=== PATIENT | female | born 1940 | race Caucasian/White ===

== ENCOUNTER 2023-01-07 13:14 | Outpatient (AMB) | payer OTHER, SELFPAY ==
--- NOTE | 2023-01-07 13:33 | A.OFFVIS_ITS ---
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 Pt states she is starting to have trouble remembering things. Pt states she is starting to lose things like her TV remote. Allergies No Known Allergies Allergy (Verified 01/07/23 13:36) Medication List - Last Reconciled 01/07/23 by Keena Adams MD amlodipine 5 mg PO DAILY ascorbic acid (vitamin C) (Vitamin C) 500 mg PO DAILY aspirin 81 mg PO DAILY cholecalciferol (vitamin D3) 50 mcg PO DAILY coenzyme Q10 mg PO cyanocobalamin (vitamin B-12) mcg PO fexofenadine 180 mg PO DAILY gabapentin 100 mg PO DAILY hydroxyzine HCl 25 mg PO BID lansoprazole 30 mg PO BID lisinopril 20 mg PO DAILY minoxidil mg PO DAILY oxybutynin chloride ER 10 mg PO DAILY polyethylene glycol 3350 17 grams PO DAILY pravastatin 40 mg PO DAILY HPI HPI Comments History of Present Illness Details 82y/o Khmer speaking female comes for evaluation of short term memory issues which started about 2-3 years.She lives alone. she forgets if she took her medications, gets distracted easily, frequently misplaces things in her house, forgets conversations, forgets appointments etc. she is still able to do all ADLs. she stopped driving in 1998 when she moved to [facility]. she has depression and anxiety- not well controlled. she had a minor head injury after a fall in the house. she did not need hospitalization. she has trouble falling asleep- takes few hrs. she has trouble relaxing.she denies snoring she takes naps occaisonally [facility] Medical History (Updated 01/07/23 @ 14:20 by Keena Adams MD) Depression Insomnia Mild cognitive impairment Cervicalgia Cognitive impairment Surgical History (Updated 01/07/23 @ 13:39 by Billie Taylor MA) Hx of section Family History (Updated 01/07/23 @ 13:39 by Billie Taylor MA) Mother Stomach cancer (Updated 01/07/23 @ 13:39 by Billie Taylor MA) Household Members: None Housing: Apartment Alcohol intake: never Patient Tobacco Use Status: Never used Tobacco Physical Exam Vital Signs: Last Vital Signs Pulse 90 01/07/23 13:34 BP 148/92 H 01/07/23 13:34 Pulse Ox 94 01/07/23 13:34 Oxygen Delivery Method Room Air 01/07/23 13:34 BMI result Body Mass Index 22.3 Const Orientation/consciousness: patient oriented x3 Eyes Pupils: Equal, round and reactive pupils present Neuro General: patient oriented x3, gait normal, tone normal, moves all extremities and no focal motor deficits Cranial nerves: Yes Facial sensation intact/muscles of mastication intact, Yes Equal, round and reactive pupils present, Yes Bilaterally intact EOM present, Yes Nystagmus not present, Yes Normal facial strength present, Yes Midline tongue present and Yes Symmetric palate elevation present Cognition (Neuro): normal cognition Gait exam (Neuro): Normal gait present Motor exam (neuro): 5/5 motor strength present throughout and Normal motor muscle tone present throughout Deep tendon reflexes (DTR's): Right triceps reflex intensity grade: 2+, Left triceps reflex intensity grade: 2+, Rt Biceps (C5, C6): 2+, Left biceps reflex intensity grade: 2+, Right brachioradialis reflex intensity grade: 2+, Left brachioradialis reflex intensity grade: 2+, Right patellar reflex intensity grade: 3+ and Left patellar reflex intensity grade: 3+ Coordination: [id number] test normal Psych Affect: Depressed mood present Orientation What is the (year) (season) (date) (day) (month)?: year, season, date, day and month Where are we (state) (county) (town or city) (hospital) (floor)?: state, county, town or city, hospital/clinic and floor Registration Name of 3 unrelated objects clearly and slowly, then ask patient to repeat all 3 of them. (1st repeat determines score. Make sure they can repeat all three): object 1, object 2 and object 3 Attention & Calculation (CHOOSE ONE) Spell WORLD backwards (DLROW): 5 letters Recall Ask patient to repeat the 3 items from question #3.: object 1 and object 3 Language Show patient a wristwatch & ask what it is. Repeat for pencil.: watch and pencil Ask the patient to repeat the phrase 'No ifs, ands, or buts' after you.: correct Ask the patient to 'take a piece of paper with their right hand' 'fold paper in half' 'place paper on floor': take paper in right hand and fold paper in half Print the sentence 'CLOSE YOUR EYES' on a piece. If patient actually closes eyes then score.: followed written direction Give patient a blank piece of paper & ask to write a sentence. Score if it contains a noun & verb.: sentence contains subject and verb Ask patient to copy figure of intersecting pentagons exactly. Score if all 10 angles & 2 intersects are included.: all 10 angles present & 2 are intersected Score Score: 28 Assessment & Plan Assessment & Plan (1) Mild cognitive impairment: Comment: likely mood related and poor sleep Code(s): G31.84 - Mild cognitive impairment of uncertain or unknown etiology (2) Cervicalgia: Code(s): M54.2 - Cervicalgia (3) Insomnia: Code(s): G47.00 - Insomnia, unspecified (4) Depression: Code(s): F32.A - Depression, unspecified Plan I will evaluate her with MRI brain, C spine X ray , labs . I will trial her on remeron 7.5 mg qhs to help with sleep and mood F/U in 3 months Orders: Orders TSH reflex Free T4 Today R41.89 - Other symptoms and signs involving cognitive functions and awareness Vitamin B12 and Folate Today R41.89 - Other symptoms and signs involving cognitive functions and awareness Vitamin D 25-OH (D2 and D3) Today R41.89 - Other symptoms and signs involving cognitive functions and awareness Erythrocyte Sedimentation Rate Today R41.89 - Other symptoms and signs involving cognitive functions and awareness Comprehensive Met. Panel Today R41.89 - Other symptoms and signs involving cognitive functions and awareness MR brain wo con w neuroquant Today R41.89 - Other symptoms and signs involving cognitive functions and awareness XR cervical spine 3V Today M54.2 - Cervicalgia Complete Blood Count Auto Diff Today R41.89 - Other symptoms and signs involving cognitive functions and awareness Medications: New mirtazapine 7.5 mg PO BEDTIME 30 tabs 6RF Coding Level of Care Code New Pt Level 4 (85220) Diagnoses Mild cognitive impairment G31.84 Cervicalgia M54.2 Insomnia G47.00 Depression F32.A
[2023-01-07 13:34] VITALS: BP 148/92; PULSE 90; O2SAT 94; BMI 22.3
== END 2023-01-07 14:15 | disposition home or self-care (01) ==
PROVIDERS: PCP Family Medicine; Visit Provider Psychiatry & Neurology Neurology
DX: G31.84 Mild cognitive impairment of uncertain or unknown etiology (principal); M54.2 Cervicalgia; G47.00 Insomnia, unspecified; F32.A Depression, unspecified
CPT/HCPCS: 99204

== ENCOUNTER → 2023-01-07 13:14 | Outpatient (BNVA) | payer OTHER, SELFPAY | PROVIDERS: PCP Family Medicine; Visit Provider Psychiatry & Neurology Neurology | DX: G31.84 Mild cognitive impairment of uncertain or unknown etiology (principal); G47.00 Insomnia, unspecified; M54.2 Cervicalgia; F32.A Depression, unspecified | CPT/HCPCS: 99202 ==

== ENCOUNTER 2023-10-24 13:12 | Outpatient (AMB) | payer OTHER, SELFPAY ==
--- NOTE | 2023-10-24 13:21 | MHC.OFFVIS ---
Vital Signs 10/24/23 13:22 Height 4 ft 9 in Weight 103 lb 8 oz BMI 22.4 BP 138/64 Blood Pressure Location Rt brachial Position Sitting Respiration 16 Pulse 91 Pulse Source Pulse Oximeter Pulse Oximetry (%) 96 Oxygen Delivery Method Room Air Intake Visit Reasons: Follow up Intake Note: Pt presents to the office for a 10 month follow up for memory impairment. Labor Relations Officer Required: Yes Labor Relations Officer Services: Labor Relations Officer Present Labor Relations Officer Name: Candis RGUERDA Allergies No Known Allergies Allergy (Verified 10/24/23 13:22) Medication List - Last Reconciled 10/24/23 by Keena Adams MD amlodipine 5 mg PO DAILY ascorbic acid (vitamin C) (Vitamin C) 500 mg PO DAILY aspirin 81 mg PO DAILY cholecalciferol (vitamin D3) 50 mcg PO DAILY coenzyme Q10 mg PO cyanocobalamin (vitamin B-12) mcg PO fexofenadine 180 mg PO DAILY gabapentin 100 mg PO DAILY hydroxyzine HCl 25 mg PO BID lansoprazole 30 mg PO BID lisinopril 20 mg PO DAILY minoxidil mg PO DAILY mirtazapine 7.5 mg PO BEDTIME oxybutynin chloride ER 10 mg PO DAILY polyethylene glycol 3350 17 grams PO DAILY pravastatin 40 mg PO DAILY HPI Comments Details: 83y/o Lao speaking female comes for follow up of short term memory issues which started about 2-3 years. she was started on mirtazepine 7.5mg qhs - sleeping better.she reports daytime fatigue She lives alone. she forgets if she took her medications, gets distracted easily, frequently misplaces things in her house, forgets conversations, forgets appointments etc. she is still able to do all ADLs. she stopped driving in 1998 when she moved to [facility]. she has depression and anxiety- mildly improved with mirtazepine she had a fall last week and went to ER. Her shoes broke and she tripped and fell. she reports mild balance issues. she takes naps occasionally PFSH Medical History Depression Insomnia Mild cognitive impairment Cervicalgia Cognitive impairment Surgical History Hx of section Family History Mother Stomach cancer Social History Household Members: None Housing: Apartment Alcohol intake: never Patient Tobacco Use Status: Never used Tobacco Physical Exam Vital Signs: Last Vital Signs Pulse 91 10/24/23 13:22 Resp 16 10/24/23 13:22 BP 138/64 10/24/23 13:22 Pulse Ox 96 10/24/23 13:22 Oxygen Delivery Method Room Air 10/24/23 13:22 BMI result Body Mass Index 22.4 Const Orientation/consciousness: patient oriented x3 Eyes Pupils: Equal, round and reactive pupils present Neuro General: patient oriented x3, gait normal, tone normal, moves all extremities and no focal motor deficits Cranial nerves: Yes Facial sensation intact/muscles of mastication intact, Yes Equal, round and reactive pupils present, Yes Bilaterally intact EOM present, Yes Nystagmus not present, Yes Normal facial strength present, Yes Midline tongue present and Yes Symmetric palate elevation present Cognition (Neuro): normal cognition Gait exam (Neuro): Normal gait present Motor exam (neuro): 5/5 motor strength present throughout and Normal motor muscle tone present throughout Deep tendon reflexes (DTR's): Right triceps reflex intensity grade: 2+, Left triceps reflex intensity grade: 2+, Rt Biceps (C5, C6): 2+, Left biceps reflex intensity grade: 2+, Right brachioradialis reflex intensity grade: 2+, Left brachioradialis reflex intensity grade: 2+, Right patellar reflex intensity grade: 3+ and Left patellar reflex intensity grade: 3+ Coordination: [id number]-ki-[id number] test normal Psych Affect: Depressed mood present Assessment & Plan Assessment & Plan (1) Mild cognitive impairment: Comment: likely mood related and poor sleep Code(s): G31.84 - Mild cognitive impairment of uncertain or unknown etiology Category: Medical (2) Cervicalgia: Code(s): M54.2 - Cervicalgia Category: Medical (3) Insomnia: Code(s): G47.00 - Insomnia, unspecified Category: Medical Plan MRI brain- age related changes C spine X ray - deg changes Continue remeron 7.5 mg qhs to help with sleep and mood will refer her to PT for gait and balance Orders: Referrals [facility] Referral G31.84 - Mild cognitive impairment of uncertain or unknown etiology, M54.2 - Cervicalgia, R29.6 - Repeated falls Medications: Refilled mirtazapine 7.5 mg PO BEDTIME 30 tabs 6RF Coding Level of Care Code Est Pt Level 4 (22191) Diagnoses Mild cognitive impairment G31.84 Cervicalgia M54.2 Insomnia G47.00
[2023-10-24 13:22] VITALS: BP 138/64; PULSE 91; RESP 16; O2SAT 96; BMI 22.4
== END 2023-10-24 13:50 | disposition home or self-care (01) ==
PROVIDERS: PCP Family Medicine; Visit Provider Psychiatry & Neurology Neurology
DX: G31.84 Mild cognitive impairment of uncertain or unknown etiology (principal); M54.2 Cervicalgia; G47.00 Insomnia, unspecified
CPT/HCPCS: 99214

== ENCOUNTER → 2023-10-24 13:12 | Outpatient (BNVA) | payer OTHER, SELFPAY | PROVIDERS: PCP Family Medicine; Visit Provider Psychiatry & Neurology Neurology | DX: G31.84 Mild cognitive impairment of uncertain or unknown etiology (principal); M54.2 Cervicalgia; G47.00 Insomnia, unspecified; R29.6 Repeated falls | CPT/HCPCS: 99212 ==

== ENCOUNTER → 2024-09-01 23:59 | Outpatient (BNV) | payer OTHER, SELFPAY | PROVIDERS: PCP Family Medicine; Visit Provider Psychiatry & Neurology Neurology | DX: G31.84 Mild cognitive impairment of uncertain or unknown etiology (principal); R29.6 Repeated falls; M54.2 Cervicalgia | CPT/HCPCS: G0179 ==

== ENCOUNTER → 2024-11-08 23:59 | Outpatient (BNV) | payer OTHER, SELFPAY | PROVIDERS: PCP Family Medicine; Visit Provider Psychiatry & Neurology Neurology | DX: G31.84 Mild cognitive impairment of uncertain or unknown etiology (principal); R29.6 Repeated falls; M54.2 Cervicalgia | CPT/HCPCS: G0179 ==

== ENCOUNTER 2024-11-30 14:31 | Outpatient (AMB) | payer OTHER, SELFPAY ==
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
[2024-11-30 14:41] VITALS: BP 150/70; PULSE 72; O2SAT 94; BMI 22.5
--- OUTSIDE RECORDS SUMMARY | 2024-11-30 17:25 | XMS_ITS | Clinical Summary ---
Author Organization [employer] Address [address] [place] [address] Care Team Providers Care Revenue Stamp Cutter Name Role Phone Unavailable Primary Care Provider Unavailabl e Allergies Active Allergy Reactions Criticality Noted Date Comments Aspirin 09/16/2012 Other reaction(s): Stomach Pain 325mg dose gives burning in chest, 81mg ok 325mg dose gives burning in chest, 81mg ok Chlorthalidone 11/08/2021 Hyponatremia Medications amLODIPine (Norvasc) 5 MG tablet Take 5 mg by mouth in the morning. 3 Active ammonium lactate (Amlactin) 12 % cream 3 Active ascorbic acid (Vitamin C) 500 mg chewable tablet CHEW 1 TABLET BY MOUTH EVERY DAY WITH MEALS FOR 90 DAYS 3 Active Aspirin Low Dose 81 MG EC tablet Take 81 mg by mouth in the morning. 3 Active cholecalciferol (Vitamin D-3) 50 MCG (2000 UT) tablet Take 50 mcg by mouth in the morning. 3 Active coenzyme Q-10 100 MG capsule Take 100 mg by mouth in the morning. 3 Active Allergy Relief 180 MG tablet Take 180 mg by mouth in the morning. 3 Active fluticasone (Flonase) 50 MCG/ACT nasal spray SHAKE LIQUID AND USE 2 SPRAYS IN EACH NOSTRIL EVERY DAY DIRECTED 3 Active gabapentin (Neurontin) 100 MG capsule TAKE 1 CAPSULE BY MOUTH EVERY DAY AT BEDTIME 3 Active hydrOXYzine HCl (Atarax) 25 MG tablet TAKE 1 TO 2 TABLETS BY MOUTH EVERY NIGHT AT BEDTIME NEEDED 3 Active lactulose (Chronulac) 10 GM/15ML solution TAKE 15 ML BY MOUTH EVERY DAY NEEDED 3 Active lansoprazole (Prevacid) [address] capsule Take 30 mg by mouth 2 times daily. 3 Active lisinopril 20 MG tablet Take 20 mg by mouth in the morning. 3 Active minoxidil (Loniten) 2.5 MG tablet Take 2.5 mg by mouth in the morning. 3 Active Multiple Vitamin (Multivitamin) tablet Take 1 tablet by mouth in the morning. 3 Active pravastatin (Pravachol) 40 MG tablet Take 40 mg by mouth at bedtime. 3 Active triamcinolone (Kenalog) 0.1 % cream APPLY THIN LAYER TOPICALLY TO THE AFFECTED AREA TWICE DAILY 3 Active Active Problems Problem Noted Date Diagnosed Date Dental calculus 07/19/2022 Open fracture of tooth 07/05/2022 Partially edentulous mandible 05/28/2022 Social History Tobacco Use Types Packs/Day Years Used Date Smoking Tobacco: Never Passive Smoke Exposure: Never Smokeless Tobacco: Never Tobacco Cessation:Counseling Given: Not Answered Alcohol Use Standard Drinks/Week Comments Never 0 (1 standard drink = 0.6 oz pur e alcohol) Comments Unknown Sex and Gender Information Value Date Recorded Sex Assigned at Female 12/17/2021 10:24 AM EDT Legal Sex Female 10:24 AM EDT Gender Identity Female 12/17/2021 10:24 AM EDT Sexual Orientation Straight 12/17/2021 10 :24 AM EDT Last Filed Vital Signs Vital Sign Reading Time Taken Comments Blood Pressure 126/78 07/19/2022 10:05 AM EDT Pulse 74 07/19/2022 10:05 AM EDT Temperature - - Respiratory Rate - - Oxygen Saturation - - Inhaled Oxygen Concentration - - Weight - - Height - - Body Mass Index - - Plan of Treatment Health Maintenance Due Date Last Done Comments Dental Oral Exam 1941 Dental X-Ray: Bitewings 1941 Dental X-Ray: Full Mouth 1941 Depression Screening 1941 Lipid Panel 1941 SDOH Screening 1941 Alcohol/Substance Use Screening 1953 RSV Patients and Patients Aged 60 years or older (1 - 1-dose 75+ series) 02/06/2016 DTaP/Tdap/Td Vaccines (1 - Tdap) 09/23/2020 09/22/2020, 11/14/2010 Dental Prophylaxis 01/19/2023 07/19/2022 Tobacco Screening 07/20/2023 07/19/2022 COVID-19 Vaccine ( season) 2024 04/06/2021, 04/22/2020, 03/25/2020 Influenza Vaccine (#1) 2024 , 12/01/2021, 11/24/2020, Additional history exists Pneumococcal Vaccine: 50+ Years Completed 11/23/2014, 10/26/2010 Zoster Vaccines Completed 02/27/2022, 12/18, 11/23/2018, Additional history exists HIB Vaccines Aged Out No longer eligi ble based on patient's age to complete this topic HPV Vaccines Aged Out No longer eligi ble based on patient's age to complete this topic Hepatitis A Vaccines Aged Out No long er eligible based on patient's age to complete this topic Hepatitis B Vaccines Aged Out No long er eligible based on patient's age to complete this topic IPV Vaccines Aged Out No longer eligi ble based on patient's age to complete this topic Meningococcal B Vaccine Aged Out No l onger eligible based on patient's age to complete this topic Meningococcal Vaccine Aged Out No missy erwin eligible based on patient's age to complete this topic RSV under 20 months Aged Out No longe r eligible based on patient's age to complete this topic Rotavirus Vaccines Aged Out No longer eligible based on patient's age to complete this topic Procedures Procedure Name Priority Date/Time Associated Diagnosis Comments PROPHYLAXIS - ADULT Routine 07/19/2022 10:00 AM E DT Dental calculus from Last 3 Months or Most Recently Relevant to Health Maintenance Insurance DENTAL - [facility] Member Subscriber Plan / Payer (Ef fective 2023-) Name:Niyah Sales Relation to Subscriber:Self Name:Niyah Sales Payer ID:Not on file Group ID:Not on file Type:Not on file Address: [address] [facility]
--- OUTSIDE RECORDS SUMMARY | 2024-11-30 17:25 | XMS_ITS | Encounter Summary ---
Author Organization [facility] Address [address] [place] [address] Phone Care Team Providers Care Analytical Scientist Name Role Phone Tapan Lovelace MD Primary Care Provider [phone] Arpita Mo NP Primary Care Provider [phone] Cristobal Alcantara DO Unavailable [phone] Keena Adams MD Unavailable [phone] Encounter Details Date Type Department Care Team (Late st Contact Info) Description 03/08/2021 Procedure Pass [facility] Admitting Dept Virtual Department [address] [place], [place] [id number] Social History Tobacco Use Types Packs/Day Years Used Date Smoking Tobacco: Never Smokeless Tobacco: Never Alcohol Use Standard Drinks/Week Comments Never 0 (1 standard drink = 0.6 oz pur e alcohol) Comments Unknown Sex and Gender Information Value Date Recorded Sex Assigned at Female 11/21/2020 9:05 PM EDT Legal Sex Female 10:11 PM EDT Gender Identity Female 11/21/2020 9:05 PM EDT Sexual Orientation Straight 11/21/2020 9: 05 PM EDT documented as of this encounter Plan of Treatment Upcoming Encounters Date Type Department Care Team (Late st Contact Info) Description 04/28/2025 2:30 PM EDT Office Visit [facility] [address] [place] [address] Cristobal Alcantara DO [address] [place] [address] [email or web address] documented as of this encounter Visit Diagnoses Not on filedocumented in this encounter Additional Health Concerns Infection Onset Date Last Indicated Resolved Time CoV-Risk 02/02/2024 02/02/2024 02/13/2024 1:22 AM EST documented as of this encounter Care Teams Analytical Scientist Relationship Specialty Start Date End Date Tapan Lovelace MD [address] [place] [address] [place] [phone] [email or web address] PCP - General 02/20/17 11/21/21 Arpita Mo NP [address] [place] [phone] PCP - General Family Medicine 11/22/21 Cristobal Alcantara DO [address] [place] [phone] [email or web address] Geriatric Medicine 11/18/23 Keena Adams MD [address] [place] [id number] Neurology 11/18/23 documented as of this encounter Additional Source Comments The information contained in this document represents components of the legal health record. It is not the complete legal health record.[facility]
--- OUTSIDE RECORDS SUMMARY | 2024-11-30 17:25 | XMS_ITS | Encounter Summary ---
Author Organization [facility] Address [address] [place] [address] Phone Care Team Providers Care Phlebotomy Manager Name Role Phone Arpita Mo BARROW WORKER HELPER Primary Care Provider [phone] Cristobal Alcantara DO Unavailable [phone] Keena Adams MD Unavailable [phone] Encounter Details Date Type Department Care Team (Late st Contact Info) Description 02/02/2024 Procedure Pass [facility], Ct Scan - [facility] [address] [place] [address] Social History Tobacco Use Types Packs/Day Years Used Date Smoking Tobacco: Never Smokeless Tobacco: Never Alcohol Use Standard Drinks/Week Comments Never 0 (1 standard drink = 0.6 oz pur e alcohol) Education Answer Date Recorded Are you interested in more education? Not on joão e 06/14/2022 Are you concerned about learning? Not on file 06/14/2022 No 06/14/2022 No 06/14/2022 Digital Access Answer Date Recorded No 07/15/2022 No 07/15/2022 Reliable internet access at home? Not on file 07/15/2022 Device with a working camera? Not on file Intimate Partner Violence Answer Date R ecorded Are you denied basic needs s uch as food, clothing, or medical care? No 02/02/2024 In the past 12 months have y ou been in a relationship with a person who hurts, threatens, or tries to control you? No 02/02/2024 Are you denied basic needs s uch as food, clothing, or medical care? No 02/02/2024 In the past 12 months have y ou been in a relationship with a person who hurts, threatens, or tries to control you? No 02/02/2024 Comments Unknown Sex and Gender Information Value Date Recorded Sex Assigned at Female 11/21/2020 9:05 PM EDT Legal Sex Female 10:11 PM EDT Gender Identity Female 11/21/2020 9:05 PM EDT Sexual Orientation Straight 11/21/2020 9: 05 PM EDT documented as of this encounter Functional Status * Calculated C-SSRS Risk Score (Lifetime/Recent) Answer Date of Assessment Author No Risk Indicated 02/02/2024 4:37 PM Donato Albert RN * [place] Suicide Severity Rating Scale (Screener/Recent Self-Report) Question Answer Date of Assessment Author 1. Wish to be (Past 1 Month) No 02/02/2024 4:37 PM Donato Albert, RN 2. Non-Specific Active Suici dejon Thoughts (Past 1 Month) No 02/02/2024 4:37 PM Shun Albert RN 6. Suicidal Behavior (Lifetime) No 4:37 PM Donato Albert, RN documented as of this encounter Plan of Treatment Upcoming Encounters Date Type Department Care Team (Late st Contact Info) Description 04/28/2025 2:30 PM EDT Office Visit [facility] [address] [place] [address] Cristobal Alcantara DO [address] [place] [address] [email or web address] documented as of this encounter Visit Diagnoses Not on filedocumented in this encounter Additional Health Concerns Infection Onset Date Last Indicated Resolved Time CoV-Risk 02/02/2024 02/02/2024 02/13/2024 1:22 AM EST Assessment Noted Time PHQ-9 Depression Total Score: 13 024 2:25 PM EDT PHQ-2 Depression Total Score: 4 11/27/19 24 2:25 PM EDT documented as of this encounter Care Teams Phlebotomy Manager Relationship Specialty Start Date End Date Chepe Arpitanamita Alfaro NP [address] [place] [address] PCP - General Family Medicine 11/22/21 Cristobal Alcantara DO [address] [place] [address] [email or web address] Geriatric Medicine 11/18/23 Keena Adams MD [address] [place] [address] Neurology 11/18/23 documented as of this encounter Additional Source Comments The information contained in this document represents components of the legal health record. It is not the complete legal health record.[facility]
--- OUTSIDE RECORDS SUMMARY | 2024-11-30 17:25 | XMS_ITS | Encounter Summary ---
Author Organization [employer] Address [address] [facility] 7t [place] [address] Care Team Providers Care Metal Cut Off Saw Operator Name Role Phone Unavailable Primary Care Provider Unavailabl e Encounter Details Date Type Department Care Team (Latest Contact Info) Description 05/12/2020 Abstract [facility] CONVERSIONS Dental, Provider, DDS Social History Tobacco Use Types Packs/Day Years Used Date Smoking Tobacco: Never Assessed Comments Unknown Sex and Gender Information Value Date Recorded Sex Assigned at Female 12/17/2021 10:24 AM EDT Legal Sex Female 10:24 AM EDT Gender Identity Female 12/17/2021 10:24 AM EDT Sexual Orientation Straight 12/17/2021 10 :24 AM EDT documented as of this encounter Plan of Treatment Not on file documented as of this encounter Visit Diagnoses Not on filedocumented in this encounter
--- OUTSIDE RECORDS SUMMARY | 2024-11-30 17:25 | XMS_ITS | Encounter Summary ---
Author Organization [facility] Address [address] [facility] [address] [place] [address] Phone Care Team Providers Care Councillor [employer] Name Role Phone Tapan Lovelace MD Primary Care Provider [phone] Arpita Mo NP Primary Care Provider [phone] Cristobal Alcantara DO Unavailable [phone] Keena Adams MD Unavailable [phone] Encounter Details Date Type Department Care Team (Late st Contact Info) Description 12/18/2018 Procedure Pass [facility] Admitting Dept Virtual Department [address] [place] [address] [phone] Social History Tobacco Use Types Packs/Day Years [...] documented as of this encounter Functional Status documented as of this encounter Plan of Treatment Upcoming Encounters Date Type Department Care Team (Late st Contact Info) Description 04/28/2025 2:30 PM EDT Office Visit [facility] [address] [place] [address] Cristobal Alcantara DO [address] [place] [address] [email or web address] documented as of this encounter Visit Diagnoses Not on filedocumented in this encounter Additional Health Concerns Infection Onset Date Last Indicated Resolved Time CoV-Risk 02/02/2024 02/02/2024 02/13/2024 1:22 AM EST documented as of this encounter Care Teams Councillor Aboriginal Land [employer] Relationship Specialty Start Date End Date Tapan Lovelace MD [address] [place] [phone] PCP - General 02/20/17 11/21/21 Arpita Mo NP [address] [place] [address] PCP - General Family Medicine 11/22/21 Cristobal Alcantara DO [address] [place] [address] [email or web address] Geriatric Medicine 11/18/23 Keena Adams MD [address] [place] [address] Neurology 11/18/23 documented as of this encounter Additional Source Comments The information contained in this document represents components of the legal health record. It is not the complete legal health record.[facility]
--- OUTSIDE RECORDS SUMMARY | 2024-11-30 17:25 | XMS_ITS | Encounter Summary ---
Author Organization [employer] Address [address] [facility] 7t [place] [address] Care Team Providers Care Genetic Supervisor Name Role Phone Unavailable Primary Care Provider Unavailabl e Reason for Visit * Reason Onset Date Comments Appointment 09/20/2022 Encounter Details Date Type Department Care Team (Late st Contact Info) Description 09/20/2022 Telephone [facility] ADULT DENTAL [address] [place], [place] [phone] Barber Sandoval DDS [address] [place], [place] [phone] Appointment Social History Tobacco Use Types Packs/Day Years Used Date Smoking Tobacco: Never Passive Smoke Exposure: Never Smokeless Tobacco: Never Alcohol Use Standard Drinks/Week Comments Never 0 (1 standard drink = 0.6 oz pur e alcohol) Comments Unknown Sex and Gender Information Value Date Recorded Sex Assigned at Female 12/17/2021 10:24 AM EDT Legal Sex Female 10:24 AM EDT Gender Identity Female 12/17/2021 10:24 AM EDT Sexual Orientation Straight 12/17/2021 10 :24 AM EDT documented as of this encounter Miscellaneous Notes * Telephone Encounter - Joan Titus - 09/20/2022 3:02 PM EDT Patient is upset because she is on the waiting list for an appt with Dr. Sandoval and states that sheneeds an appt. She states that she has been calling for months. I see the appt wait listed for 09/02. She states she has been waiting for months and wants to get in for an appt. I did explain the wait list and that she will get a call when it is her turn to come in but she is insisting on speaking to the Dr and getting and appt scheduled. She doesn't understand what the wait is. She would like a call back with an appt DR documented in this encounter Plan of Treatment Not on file documented as of this encounter Visit Diagnoses Not on filedocumented in this encounter
--- OUTSIDE RECORDS SUMMARY | 2024-11-30 17:25 | XMS_ITS | Encounter Summary ---
Author Organization [facility] Address [address] [place] [address] Phone Care Team Providers Care Application Security Engineer Name Role Phone Arpita Mo SATELLITE TV TECHNICIAN Primary Care Provider [phone] Cristobal Alcantara DO Unavailable [phone] Keena Adams MD Unavailable [phone] Encounter Details Date Type Department Care Team (Late st Contact Info) Description 02/02/2024 Procedure Pass [facility], Ct Scan - [facility] [address] [place] [address] Social History Tobacco Use Types Packs/Day Years [...] 02/02/2024 4:37 PM Donato Albert RN * [place] Suicide Severity Rating Scale (Screener/Recent Self-Report) Question [...] Description 04/28/2025 2:30 PM EDT Office Visit [facility] [address] [place] [address] Cristobal Alcantara DO [address] [place] [address] [email or web address] documented as of this encounter Visit Diagnoses Not on filedocumented in this encounter Additional Health Concerns Infection Onset Date Last Indicated Resolved Time CoV-Risk 02/02/2024 02/02/2024 02/13/2024 1:22 AM EST Assessment Noted Time PHQ-9 Depression Total Score: 13 024 2:25 PM EDT PHQ-2 Depression Total Score: 4 11/27/19 24 2:25 PM EDT documented as of this encounter Care Teams Application Security Engineer Relationship Specialty Start Date End Date Chepe Arpitanamita Alfaro NP [address] [place] [address] PCP - General Family Medicine 11/22/21 Cristobal Alcantara DO [address] [place] [address] [email or web address] Geriatric Medicine 11/18/23 Keena Adams MD [address] [place] [address] Neurology 11/18/23 documented as of this encounter Additional Source Comments The information contained in this document represents components of the legal health record. It is not the complete legal health record.[facility]
--- OUTSIDE RECORDS SUMMARY | 2024-11-30 17:25 | XMS_ITS | Encounter Summary ---
Author Organization [email or web address] Address [address] [facility] 7t [place] [address] Care Team Providers Care Claim Technician Name Role Phone Unavailable Primary Care Provider Unavailabl e Encounter Details Date Type Department Care Team (Latest Contact Info) Description 12/21/2021 Abstract [facility] CONVERSIONS Dental, Provider, DDS Social History Tobacco [...]
--- OUTSIDE RECORDS SUMMARY | 2024-11-30 17:25 | XMS_ITS | Encounter Summary ---
Author Organization [employer] Address [address] [facility] 7t [place] [address] Care Team Providers Care Associate Of Science In Nursing Name Role Phone Unavailable Primary Care Provider Unavailabl e Reason for Visit * Reason Onset Date Comments case from lab 07/08/2022 Encounter Details Date Type Department Care Team (Late st Contact Info) Description 07/08/2022 Telephone [facility] ADULT DENTAL [address] [place], [place] [phone] Barber Sandoval DDS [address] [place], [place] [phone] case from lab Social History Tobacco Use Types Packs/Day Years [...] Orientation Straight 12/17/2021 10 :24 AM EDT COVID-19 Exposure Response Date Recorded In the last 10 days, have yo u been in contact with someone who was confirmed or suspected to have Coronavirus/COVID-19? No / Unsure 07/05/2022 10:59 AM EDT documented as of this encounter Miscellaneous Notes * Telephone Encounter - Joan Titus - 07/09/2022 2:52 PM EDT Thank you. Patient is calling in again today to confirm if case is back from lab today? * Telephone Encounter - Joan Titus - 07/08/2022 1:16 PM EDT Patient was told to call in today to check if case is back from lab. DR documented in this encounter Plan of Treatment Not on file documented as of this encounter Visit Diagnoses Not on filedocumented in this encounter
--- OUTSIDE RECORDS SUMMARY | 2024-11-30 17:25 | XMS_ITS | Encounter Summary ---
Author Organization [facility] Address [address] [place] [address] Phone Care Team Providers Care Warehouse Supervisor Name Role Phone Tapan Lovelace MD Primary Care Provider Arpita Mo NP Primary Care Provider [phone] Cristobal Alcantara DO Unavailable [phone] Keena Adams MD Unavailable Encounter Details Date Type Department Care Team (Latest Contact Info) Description 10/14/2018 Transcribe Orders [facility] Laboratory [address] [facility] 2nd Floor [place], [place] [phone] Sylvia Weeks CNP [address] [place] [address] Abdominal pain, generalized (Primary Dx); Constipation, unspecified constipation type; Calculus of gallbladder with cholecystitis without biliary obstruction, unspecified cholecystitis acuity Social History Tobacco Use Types Packs/Day Years [...] Upcoming Encounters Date Type Department Care Team ( Contact Info) Description 04/28/2025 2:30 PM EDT Office Visit [facility] [address] [place] [address] Cristobal Alcantara, [address] [place] [address] [email or web address] documented as of this encounter Results * (ABNORMAL) Comprehensive metabolic panel (10/14/2018 2:01 PM EDT) SODIUM 137 133 - 146 mmol/L [facility] POTASSIUM 4.6 3.3 - 5.1 mmol/L [facility] CHLORIDE 98 96 - 108 mmol/L [facility] CO2 26 21 - 35 mmol/L [facility] BUN 16 6 - 19 mg/dL [facility] CREATININE 0.70 0.5 - 1.5 mg/dL [facility] GLUCOSE 119(H) 70 - 99 mg/dL [facility] ALBUMIN 4.7 3.9 - 4.8 g/dL [facility] TOTAL PROTEIN 7.9 6.5 - 8.0 g/dL [facility] CALCIUM 10.0 8.4 - 10.3 mg/dL [facility] ALKALINE PHOSPHATASE 51 39 - 117 U/L [facility] TOTAL BILIRUBIN 0.3 0.0 - 1.2 mg/dL [facility] AST 24 0 - 37 U/L [facility] ALT 14 0 - 40 U/L [facility] GLOBULIN 3.2 1 - 4.8 g/dL [facility] EGFR 84 >59 mL/min/1.7 3m2 [facility] Comment:If patient is black, multiply result by 1.159. Estimated glomerular filtration rate calculated using the CKD-EPI equation. ANION GAP 18 10 - 20 mmol/L [facility] Blood 10/14/2018 2:01 PM EDT 10/14/2018 2:05 PM EDT us Sylvia Weeks CHAIN REPAIRER LAB BLOOD ORDERABLES Final Result [facility] [address] [place] [address] * (ABNORMAL) CBC and differential (10/14/2018 2:01 PM EDT) WBC 8.55 3.40 - 11.20 K/uL [facility] RBC 4.20 3.80 - 4.80 M/uL [facility] HGB 13.1 12.0 - 15.0 g/dL [facility] HCT 38.4 36.0 - 46.0 % [facility] PLT 257 130 - 400 K/uL [facility] MCV 91.4 79.0 - 98.0 fL [facility] MCH 31.2 27.0 - 34.8 pg [facility] MCHC 34.1 31.5 - 36.0 g/dL [facility] RDW 13.3 10.8 - 14.6 % [facility] MPV 10.2 9.4 - 12.4 fl [facility] NRBC 0.00 0.00 /100 WBCs [facility] ABSOLUTE NRBC 0.00 0.00 K/uL [facility] DIFF METHOD Auto [facility] NEUTS 57.8 45.30 - 77.70 % [facility] LYMPHS 33.5 12.30 - 39.70 % [facility] MONOS 7.0 4.10 - 12.80 % [facility] EOS 1.1 0 - 7.2 % [facility] BASOS 0.4 0 - 2.80 % [facility] Granulocytes, immature (%) 0.2 0.0 - 0.9 % [facility] ABSOLUTE NEUTS 4.95 1.40 - 7.70 K/uL [facility] ABSOLUTE LYMPHS 2.86 0.60 - 3.20 K/uL [facility] ABSOLUTE MONOS 0.60(H) 0.11 - 0.59 K/uL [facility] ABSOLUTE EOS 0.09 0.01 - 0.50 K/uL [facility] ABSOLUTE BASOS 0.03 0.00 - 0.08 K/uL [facility] Granulocytes, immature 0.02 0.00 - 0.05 K/uL [facility] Blood 10/14/2018 2:01 PM EDT 10/14/2018 2:05 PM EDT us ySlvia Weeks [facility] LAB BLOOD ORDERABLES Final Result Performing Organization Address City/[facility]/ZIP Co de Phone Number [address] [address] * Immunoglobulin A (10/14/2018 2:01 PM EDT) Pathologist [facility] IgA 163 70 - 400 mg/dL [facility] Blood 10/14/2018 2:01 PM EDT 10/14/2018 2:05 PM EDT us Sylvia Weeks [facility] LAB BLOOD ORDERABLES Final Result Performing Organization Address [facility] Co de Phone Number [address] [address] * Tissue transglutaminase IgA (10/14/2018 2:01 PM EDT) Pathologist [facility] TTG IGA ANTIBODY <1.2 <4.0 (Negative) U/mL [facility] Blood 10/14/2018 2:01 PM EDT 10/14/2018 2:05 PM EDT Sylvia Weeks [facility] LAB BLOOD ORDERABLES Final Result Performing Organization Address City/[facility] Co de Phone Number [facility] [address] [place] [address] documented in this encounter Visit Diagnoses Diagnosis Abdominal pain, generalized- Primary Constipation, unspecified constipation type Calculus of gallbladder with cholecystitis without biliary obstruction, unspecified cholecystitis acuity documented in this encounter Additional Health Concerns Infection Onset Date Last Indicated Resolved Time CoV-Risk 02/02/2024 02/02/2024 02/13/2024 1:22 AM EST documented as of this encounter Care Teams Warehouse Supervisor Relationship Specialty Start Date End Date Tapan Lovelace MD [address] [facility] [address] [place] [address] [email or web address] PCP - General 02/20/17 11/21/21 Arpita Mo NP [address] [place] [address] PCP - General Family Medicine 11/22/21 Cristobal Alcantara DO [address] [place] [address] [email or web address] Geriatric Medicine 11/18/23 Keena Adams MD [address] [place] [address] Neurology 11/18/23 documented as of this encounter Additional Source Comments The information contained in this document represents components of the legal health record. It is not the complete legal health record.[facility]
--- OUTSIDE RECORDS SUMMARY | 2024-11-30 17:25 | XMS_ITS | Encounter Summary ---
Author Organization [facility] Address [address] [place] [address] Phone Care Team Providers Care Emulsification Operator Name Role Phone Tapan Lovelace MD Primary Care Provider [phone] Arpita Mo NP Primary Care Provider [phone] Cristobal Alcantara DO Unavailable [phone] Keena Adams MD Unavailable [phone] Encounter Details Date Type Department Care Team (Latest Contact Info) Description 10/14/2018 Transcribe Orders Virtual Department [address] [place], [place] [phone] Sylvia Weeks CNP [address] [place] [address] [email or web address] Liver lesion (Primary Dx); Gallstones Social History Tobacco Use Types Packs/Day Years [...] Description 04/28/2025 2:30 PM EDT Office Visit [facility] [address] [place] [address] Cristobal Alcantara, [address] [place] [address] [email or web address] documented as of this encounter Results * US ABDOMEN LIMITED RIGHT UPPER QUADRANT (10/28/2018 11:50 AM EDT) Anatomical Region Laterality Modality Abdomen Ultrasound 10/29/2018 7:50 AM EDT Impressions 10/29/2018 7:53 AM EDT Chronic cholelithiasis and small left hepatic lobe cyst. No other significant abnormality of the visualized upper abdominal visceral structures. POS [id number] Narrative 10/29/2018 7:53 AM EDT COMPARISON: 11/04/2016 ultrasound FINDINGS: Chronic cholelithiasis is again demonstrated without gross gallbladder wall thickening or abnormal pericholecystic fluid. Patient reportedly did not describe tenderness during evaluation of the gallbladder fossa. Intrahepatic bile ducts are nondilated. Common duct is within normal limits at 0.3 cm in diameter. Liver is within normal limits overall size with the chronic left lobe cyst currently measuring 12 mm in greatest diameter versus 9 mm previously. No hepatic mass or new cyst identified. Pancreas and visualized portions of the upper abdominal aorta and IVC are within normal limits in size and sonographic appearance. Right kidney is not hydronephrotic. Procedure Note Keo Haywood MD - 10/29/2018 COMPARISON: 11/04/2016 ultrasound FINDINGS: Chronic cholelithiasis is again demonstrated without gross gallbladderwall thickening or abnormal pericholecystic fluid. Patient reportedly didnot describe tenderness during evaluation of the gallbladder fossa.Intrahepatic bile ducts are nondilated. Common duct is within normallimits at 0.3 cm in diameter. Liver is within normal limits overall size with the chronic left lobe cystcurrently measuring 12 mm in greatest diameter versus 9 mm previously. Nohepatic mass or new cyst identified. Pancreas and visualized portions ofthe upper abdominal aorta and IVC are within normal limits in size andsonographic appearance. Right kidney is not hydronephrotic. IMPRESSION: Chronic cholelithiasis and small left hepatic lobe cyst. No othersignificant abnormality of the visualized upper abdominal visceralstructures. POS [id number] Sylvia Weeks SURVEILLANCE ANALYST IMG US ABDOMEN Final Resu lt documented in this encounter Visit Diagnoses Diagnosis Liver lesion- Primary Other specified disorders of liver Gallstones Calculus of gallbladder without mention of cholecystitis or obstruction Liver lesion Other specified disorders of liver Gallstones Calculus of gallbladder without mention of cholecystitis or obstruction documented in this encounter Additional Health Concerns Infection Onset Date Last Indicated Resolved Time CoV-Risk 02/02/2024 02/02/2024 02/13/2024 1:22 AM EST documented as of this encounter Care Teams Emulsification Operator Relationship Specialty Start Date End Date Tapan Lovelace MD [address] [place] [address] [email or web address] PCP - General 02/20/17 11/21/21 Arpita Mo NP [address] [place] [address] PCP - General Family Medicine 11/22/21 Cristobal Alcantara DO [address] [place] [address] Geriatric Medicine 11/18/23 Keena Adams MD [address] [place] [address] Neurology 11/18/23 documented as of this encounter Additional Source Comments The information contained in this document represents components of the legal health record. It is not the complete legal health record.[facility]
--- OUTSIDE RECORDS SUMMARY | 2024-11-30 17:25 | XMS_ITS | Encounter Summary ---
Author Organization [facility] Address [address] [place] [address] Phone Care Team Providers Care Specialty Finishing Utility Person Name Role Phone Tapan Lovelace MD Primary Care Provider [phone] Arpita Mo NP Primary Care Provider [phone] Cristobal Alcantara DO Unavailable [phone] Keena Adams MD Unavailable [phone] Encounter Details Date Type Department Care Team (Latest Contact Info) Description 11/19/2021 Transcribe Orders Virtual Department [address] [place] [address] Juan R Franco MD [address] [facility] [address] [place] [address] [email or web address] Hyperpotassemia (Primary Dx) Social History Tobacco Use Types Packs/Day Years [...] Description 04/28/2025 2:30 PM EDT Office Visit [facility] [address] [place] [address] Cristobal Alcantara DO [address] [place] [address] [email or web address] documented as of this encounter Results * US Kidneys (11/22/2021 10:23 AM EDT) Anatomical Region Laterality Modality Abdomen, Kidney Ultrasound 11/23/2021 10:0 9 AM EDT Impressions 11/23/2021 10:14 AM EDT Unremarkable ultrasound examination. Narrative 11/23/2021 10:14 AM EDT US KIDNEYS TECHNIQUE: Kidney Ultrasound. COMPARISON: Abdomen ultrasound on October 28, 2018 FINDINGS: Right Kidney: Size: 9.1 cm No stones or hydronephrosis. Left Kidney: Size: 10.2 cm No stones or hydronephrosis. Bladder: Decompressed and incompletely evaluated. Procedure Note Linda Simmons MD - 11/23/2021 US KIDNEYS TECHNIQUE: Kidney Ultrasound. COMPARISON: Abdomen ultrasound on October 28, 2018 FINDINGS: Right Kidney: Size: 9.1 cm No stones or hydronephrosis. Left Kidney: Size: 10.2 cm No stones or hydronephrosis. Bladder: Decompressed and incompletely evaluated. IMPRESSION: Unremarkable ultrasound examination. us Juan R Franco MD IMG US RENAL Final Result documented in this encounter Visit Diagnoses Diagnosis Hyperpotassemia- Primary Hyperpotassemia documented in this encounter Additional Health Concerns Infection Onset Date Last Indicated Resolved Time CoV-Risk 02/02/2024 02/02/2024 02/13/2024 1:22 AM EST documented as of this encounter Care Teams Specialty Finishing Utility Person Relationship Specialty Start Date End Date Tapan Lovelace MD [address] [place] [address] [address] [place] [address] [email or web address]) PCP - General 02/20/17 11/21/21 Arpita Mo NP [address] [place] [address] PCP - General Family Medicine 11/22/21 Cristobal Alcantara DO [address] [place] [address] [email or web address] Geriatric Medicine 11/18/23 Keena Adams MD [address] [place] [address] Neurology 11/18/23 documented as of this encounter Additional Source Comments The information contained in this document represents components of the legal health record. It is not the complete legal health record.[facility]
--- OUTSIDE RECORDS SUMMARY | 2024-11-30 17:25 | XMS_ITS | Encounter Summary ---
Author Organization [facility] Address [address] [place] [address] Phone Care Team Providers Care Sign Maker Name Role Phone Arpita Mo MEAL GRINDER TENDER Primary Care Provider [phone] Cristobal Alcantara DO Unavailable [phone] Keena Adams MD Unavailable [phone] Encounter Details Date Type Department Care Team (Late st Contact Info) Description 02/02/2024 Procedure Pass [facility], Ct Scan - [facility] [address] [place] [address] Social History Tobacco Use Types Packs/Day Years [...] 02/02/2024 4:37 PM Donato Albert RN * [place] Suicide Severity Rating Scale (Screener/Recent Self-Report) Question [...] Description 04/28/2025 2:30 PM EDT Office Visit [facility] [address] [place] [address] Cristobal Alcantara DO [address] [place] [address] [email or web address] documented as of this encounter Visit Diagnoses Not on filedocumented in this encounter Additional Health Concerns Infection Onset Date Last Indicated Resolved Time CoV-Risk 02/02/2024 02/02/2024 02/13/2024 1:22 AM EST Assessment Noted Time PHQ-9 Depression Total Score: 13 024 2:25 PM EDT PHQ-2 Depression Total Score: 4 11/27/19 24 2:25 PM EDT documented as of this encounter Care Teams Sign Maker Relationship Specialty Start Date End Date Chepe Arpitanamita Alfaro NP [address] [place] [address] PCP - General Family Medicine 11/22/21 Cristobal Alcantara DO [address] [place] [address] [email or web address] Geriatric Medicine 11/18/23 Keena Adams MD [address] [place] [address] Neurology 11/18/23 documented as of this encounter Additional Source Comments The information contained in this document represents components of the legal health record. It is not the complete legal health record.[facility]
--- OUTSIDE RECORDS SUMMARY | 2024-11-30 17:25 | XMS_ITS | Encounter Summary ---
Author Organization [facility] Address [address] [place] [address] Phone Care Team Providers Care Glass Beveler Name Role Phone Arpita Mo RADIO EQUIPMENT INSTALLER Primary Care Provider [phone] Cristobal Alcantara DO Unavailable [phone] Keena Adams MD Unavailable [phone] Encounter Details Date Type Department Care Team (Late st Contact Info) Description 01/21/2023 Procedure Pass [facility] [address] [place] [address] Social History Tobacco Use Types Packs/Day Years [...] with a working camera? Not on file Comments Unknown Sex and Gender Information Value [...] 2:30 PM EDT Office Visit [facility] [address] [place] [address] [place] [address] documented as of this encounter Visit Diagnoses Not on filedocumented in this encounter Additional Health Concerns Infection Onset Date Last Indicated Resolved Time CoV-Risk 02/02/2024 02/02/2024 02/13/2024 1:22 AM EST documented as of this encounter Care Teams Glass Beveler Relationship Specialty Start Date End Date Arpita Mo NP [address] [place] [address] PCP - General Family Medicine 11/22/21 Cristobal Alcantara DO [address] [place] [address] [email or web address] Geriatric Medicine 11/18/23 Keena Adams MD [address] [place] [address] Neurology 11/18/23 documented as of this encounter Additional Source Comments The information contained in this document represents components of the legal health record. It is not the complete legal health record.[facility]
--- OUTSIDE RECORDS SUMMARY | 2024-11-30 17:25 | XMS_ITS | Encounter Summary ---
Author Organization [employer] Address [address] 7t [place] [address] Care Team Providers Care Importer Exporter Name Role Phone Unavailable Primary Care Provider Unavailabl e Reason for Visit * Reason Onset Date Comments partial 10/10/2022 Encounter Details Date Type Department Care Team (Late st Contact Info) Description 10/10/2022 Telephone [facility] ADULT DENTAL [address] [place], [place] [phone] Barber Sandoval DDS [address] [place], [place] [phone] partial Social History Tobacco Use Types Packs/Day Years [...] * Telephone Encounter - Joan Titus - 10/10/2022 1:41 PM EDT Patient called in with someone who was helping her with the call. She stated that the [facility] nurse went to see her. She told the [facility] nurse that she has been waiting for an appt for her partial and showed the nurse that her permanent tooth had fallen out. The [facility] nurse told the patient that she had to come to the office and get the partial done again for free because the reason her tooth fell off wasbecause the partial she had in her mouth was not done right and had to be redone for free. The patient is looking for an appt for this. I told them that I would relay the information to the dental office and that the first visit she receives would be to evaluate the situation and go from there. Canpatient be scheduled DR documented in this encounter Plan of Treatment Not on file documented as of this encounter Visit Diagnoses Not on filedocumented in this encounter
--- OUTSIDE RECORDS SUMMARY | 2024-11-30 17:25 | XMS_ITS | Encounter Summary ---
Author Organization [employer] Address [address] [facility] [address] 7t [place] [address] Care Team Providers Care Manager Application Name Role Phone Unavailable Primary Care Provider Unavailabl e Encounter Details Date Type Department Care Team (Latest Contact Info) Description 01/13/2019 Abstract [facility] CONVERSIONS Dental, Provider, DDS Social History Tobacco [...]
--- OUTSIDE RECORDS SUMMARY | 2024-11-30 17:25 | XMS_ITS | Encounter Summary ---
Author Organization [employer] Address [address] [facility] 7t [place] [address] Care Team Providers Care Tanning Drum Operator Name Role Phone Unavailable Primary Care Provider Unavailabl e Encounter Details Date Type Department Care Team ([facility] st Contact Info) Description 04/19/2022 Abstract [facility] ADULT DENTAL [address] [place] [address] Barber Sandoval DDS [address] [place], [place] [phone] Social History Tobacco Use Types Packs/Day Years [...] suspected to have Coronavirus/COVID-19? No / Unsure 04/19/2022 1:08 PM EST documented as of this encounter Plan of Treatment Not on file documented as of this encounter Visit Diagnoses Not on filedocumented in this encounter
--- OUTSIDE RECORDS SUMMARY | 2024-11-30 17:25 | XMS_ITS | Clinical Summary ---
Author Organization [facility] Address [address] [place] [address] Phone Care Team Providers Care Slat Basket Maker Helper Machine Name Role Phone MoArpita BUCKET HOOKER Primary Care Provider [phone] Cristobal Alcantara DO Unavailable [phone] Keena Adams MD Unavailable [phone] Allergies Active Allergy Reactions Criticality Noted Date Comments Aspirin 09/16/2012 325mg dose gives burning in chest, 81mg ok Other reaction(s): Stomach Pain 325mg dose gives burning in chest, 81mg ok 325mg dose gives burning in chest, 81mg ok Chlorthalidone 11/08/2021 Hyponatremia Medications pravastatin (PRAVACHOL) 40 MG tablet Take 40 mg by mouth daily. Active amLODIPine (NORVASC) 5 MG tablet MING RICHY PASTILLA POR BOCA DIARIO POR 90 PINA Active lansoprazole (PREVACID SOLUTAB) 30 MG disintegrating tablet Take 30 mg by mouth daily. Active fexofenadine (BARBER) 180 MG tablet Take 180 mg by mouth daily. Active cholecalciferol (VITAMIN D3) 2,000 unit tablet Take 1,000 Units by mouth daily. Active blood-glucose meter kit by Other route as needed for other (free text field). Use as instructed Active ONETOUCH DELICA PLUS LANCET 33 gauge Misc USE TO TEST TWICE DAILY TWICE DAILY 01/14/20 23 Active lisinopril (PRINIVIL,ZESTRIL) 20 MG tablet MING RICHY PASTILLA POR BOCA DIARIO POR 90 PINA Active multivitamin per tablet Take 1 tablet by mouth every morning. 01/14/20 23 Active polyethylene glycol (MIRALAX) 17 gram packet Take 17 g by mouth 2 (two) times a day. Active aspirin 81 MG EC tablet Take 81 mg by mouth daily. Active VITAMIN C 500 mg Chew MING RICHY PASTILLA POR BOCA CADA JONO 11/12/19 24 Active cyanocobalamin, vitamin B-12, 1000 MCG tablet TAKE 1 TABLET BY MOUTH EVERY FRIDAY FOR 6 MONTHS 03/26/19 25 Active minoxidiL (LONITEN) 2.5 MG tablet Take 1 tablet by mouth every morning. 05/13/19 25 Active psyllium (METAMUCIL) Powd Take by mouth. 3 g = 1 teaspoonful (5 mL) Active acetaminophen (TYLENOL ARTHRITIS PAIN) 650 MG CR tablet Take 650 mg by mouth nightly at bedtime. according to nursing pt can increase dose to 2 pills every 12 hours, not to exceed 3000 mg/ 24 hours 06/04/19 25 Active ibuprofen (ADVIL,MOTRIN) 600 MG tablet take 1 tablet by mouth every 6 to 8 hours as needed for pain. 06/10/19 25 Active methylPREDNISolone (MEDROL DOSEPACK) 4 mg tablet as directed. 06/10/19 25 Active escitalopram oxalate (LEXAPRO) 10 MG tabletIndications: Mood disorder TAKE 1 TABLET(10 MG) BY MOUTH DAILY 90 tablet 09/22/19 25 Active Active Problems Problem Noted Date Diagnosed Date Asthma 11/27/2023 Costochondritis 11/27/2023 Cough 11/27/2023 GERD (gastroesophageal reflux disease) 4 Personal history of fall 11/27/2023 Advance care planning 08/26/2023 Insomnia 08/26/2023 Encounter for support to caregiver 05/19/2023 Mild vascular dementia with mood disturbance Memory loss 04/10/2023 At risk for polypharmacy 04/10/2023 Mood disorder 04/10/2023 Dental calculus 07/19/2022 Open fracture of tooth 07/05/2022 Partially edentulous mandible 05/28/2022 Chronic kidney disease, stage 2 (mild) 3 Hyperkalemia 11/09/2021 Essential hypertension 11/08/2021 Encounters Date Type Department Care Team Description 10/26/2024 2:30 PM EDT Office Visit [facility] [address] [place] [address] Cristobal Alcantara DO [place], [place] Mild vascular dementia with mood disturbance (Primary Dx); Mood disorder; Encounter for medication review; Advance care planning 09/20/2024 Refill [facility] [address] [place] [address] Cristobal Alcantara DO Medication Refill from Last 3 Months Immunizations Immunization Administration Dates Next Due INFLUENZA, SPLIT VIRUS, TRIVALENT PF 11/11/2012 INFLUENZA, SPLIT VIRUS, TRIV ALENT W/ PRESERVATIVE IM 11/13/2011,10/26/2010,01/16/2009 Influenza High-Dose Quadriva lent Preservative Free IM 11/20/2022,12/01/2021,11/24/2020,12/06 Influenza High-Dose Trivalen t Preservative Free IM 11/23/2018,11/03/2017,12/06/2016,11/08,11/23/2014,12/31/2013 Influenza Quadrivalent w/ Pr eservative IM 11/18/2019 Influenza, Unspecified Formulation 11/19,12/25/2006,02/14/2006,12/24,11/25/2003,12/20/2002,12/09/2001 Pneumococcal conjugate PCV13 11/23/2014 Pneumococcal polysaccharide PPSV23 10/26/2010 Td (adult) 5 Lf Tetanus Toxo id, PF, Adsorbed 11/14/2010 Td (adult),2 Lf Tetanus Toxo id, PF, Adsorbed 09/22/2020 Zoster recombinant 02/27/2022,,11/23/2018,09/21 Family History Medical History Relation Comments Stroke Father Recurrent abdominal pain Mother Glaucoma Sister Relation Status Comments Father Mother Sister Social History Tobacco Use Types Packs/Day Years Used Date Smoking Tobacco: Never Smokeless Tobacco: Never Tobacco Cessation:Counseling Given: Not Answered Alcohol Use Standard Drinks/Week Comments Never 0 (1 standard drink = 0.6 oz pur e alcohol) Home Health Assessment: Transportation Answer Date Recorded Lack of Transportation (Medical) Yes 06/25/2024 Lack of Transportation (Non-Medical) Yes 06/25/2024 Patient Unable or Declines to Respond No 06/25/2024 Education Answer Date Recorded Are you interested [...] Orientation Straight 11/21/2020 9: 05 PM EDT Last Filed Vital Signs Vital Sign Reading Time Taken Comments Blood Pressure 164/82 10/26/2024 2:28 PM EDT Pulse 70 10/26/2024 2:28 PM EDT Temperature 36.6 C (97.8 F) 06/25/2024 2:10 PM EDT Respiratory Rate 14 06/25/2024 2:10 PM EDT Oxygen Saturation 97% 10/26/2024 2:28 PM EDT Inhaled Oxygen Concentration - - Weight 47.4 kg (104 lb 9.6 oz) 10/26/2024 2:28 P M EDT Height 144.8 cm (4' 9.01 ) 07/15/2024 1:13 PM ED T Body Mass Index 22.63 07/15/2024 1:13 PM EDT Plan of Treatment Upcoming Encounters Date Type Department Care Team (Late st Contact Info) Description 04/28/2025 2:30 PM EDT Office Visit [facility] [address] [place] [address] Cristobal Alcantara DO [address] [place] [address] [email or web address] Health Maintenance Due Date Last Done Comments OSTEOPOROSIS SCREENING INITIAL (ONE-TIME) 2006 RSV VACCINE (1 - 1-dose 75+ series) 02/06/2016 COVID-19 VACCINE ( season) 2024 04/06/2021, 04/22/2020, 03/25/2020 REPEAT PHQ 11/25/2024 10/26/2024, 10/26/2024 CREATININE LEVEL 02/01/2025 02/02/2024, 10/14/2018 POTASSIUM LEVEL 02/01/2025 02/02/2024, 10/14/2018 BLOOD PRESSURE 04/25/2025 10/26/2024 DEPRESSION SCREENING 10/26/2025 10/26/2024, 10/27/19 25 Adult Td,Tdap Booster 09/22/2030 09/22/2020, 011 PNEUMOCOCCAL VACCINES (50+ years) Completed 11/23/2014, 10/26/2010 ZOSTER VACCINES Completed 02/27/2022, 12/18, 11/23/2018, Additional history exists INFLUENZA VACCINE Completed 10/15/2024, , 12/01/2021, Additional history exists HEPATITIS A VACCINES Aged Out No long er eligible based on patient's age to complete this topic HIB VACCINES Aged Out No longer eligi ble based on patient's age to complete this topic MENINGOCOCCAL VACCINES (ACWY) Aged Out No longer eligible based on patient's age to complete this topic MENINGOCOCCAL VACCINES (B) Aged Out N o longer eligible based on patient's age to complete this topic Medical Devices Not on file Procedures Procedure Name Priority Date/Time Associated Diagnosis Comments BASIC METABOLIC PANEL STAT 02/02/2024 5:33 PM EST from Last 3 Months or Most Recently Relevant to Health Maintenance Results * (ABNORMAL) Basic metabolic panel (02/02/2024 5:33 PM EST) SODIUM 133 133 - 146 mmol/L [facility] CHLORIDE 95(L) 96 - 108 mmol/L [facility] POTASSIUM 4.5 3.3 - 5.1 mmol/L [facility] CO2 25 21 - 35 mmol/L [facility] BUN 17 6 - 19 mg/dL [facility] CREATININE 0.70 0.5 - 1.5 mg/dL [facility] GLUCOSE 102(H) 70 - 99 mg/dL [facility] CALCIUM 9.6 8.4 - 10.3 mg/dL [facility] EGFR 86 >59 mL/min/1.7 3m2 [facility] Comment:Estimated glomerular filtration rate calculated using the CKD-EPI refit equation. ANION GAP 18 10 - 20 mmol/L [facility] Blood 02/02/2024 5:33 PM EST 02/02/2024 5:45 PM EST us Olinda Solis PA-C LAB BLOOD ORDERABLES Final R esult [address] [address] from Last 3 Months or Most Recently Relevant to Health Maintenance [facility] RADHA WHITE [id number] [facility] MEDICARE [facility]PLACEMENT [facility] MEDICARE REPLACEMENT [facility] MEDICARE REPLACEMENT [facility] MEDICARE REPLACEMENT [facility] MEDICARE REPLACEMENT [facility] MEDICARE [facility]PLACEMENT [facility] MEDICARE REPLACEMENT [facility] MEDICARE REPLACEMENT Member Subscriber Plan / Payer (Ef fective 2014-Present) Name:Niyah Sales Relation to Subscriber:Self Name:Niyah Sales Payer ID:[id number] (NAIC) Group ID:[id number] Type:Medicare Address: [address] [facility] RADHA WHITE Advance Directives For more information, please contact: [phone] (9AM - 5PM [facility], Friday-Friday) Documents on File Type Date Recorded Patient Maintenance Repairer Expl anation Healthcare Proxy 10/28/2024 [facility] C[facility] PROXY 10/26/24 Care Teams Slat Basket Maker Helper Machine Relationship Specialty Start Date End Date Arpita Mo NP [address] [place] [address] PCP - General Family Medicine 11/22/21 Cristobal Alcantara DO [address] [place] [address] Geriatric Medicine 11/18/23 Keena Adams MD [address] [place] [address] Neurology 11/18/23 Additional Source Comments The information contained in this document represents components of the legal health record. It is not the complete legal health record.[facility]
--- OUTSIDE RECORDS SUMMARY | 2024-11-30 17:25 | XMS_ITS | Encounter Summary ---
Author Organization [facility] Address [address] [place] [address] Phone Care Team Providers Care Taxonomist Name Role Phone Arpita Mo REMOTE RUBY ON RAILS DEVELOPER Primary Care Provider [phone] Cristobal Alcantara DO Unavailable Keena Adams MD Unavailable [phone] Encounter Details Date Type Department Care Team (Late st Contact Info) Description 02/02/2024 Procedure Pass [facility], Ct Scan - [facility] [address] [place] [address] Social History Tobacco Use Types Packs/Day Years [...] 02/02/2024 4:37 PM Donato Albert RN * [place] Suicide Severity Rating Scale (Screener/Recent Self-Report) Question Answer Date of Assessment Author 1. Wish to be (Past 1 Month) No 02/02/2024 4:37 PM Donato Albert, RN 2. Non-Specific Active Suici djeon Thoughts (Past 1 Month) No 02/02/2024 4:37 PM Shun Albert RN 6. Suicidal Behavior (Lifetime) No 4:37 PM Donato Albert, RN documented as of this encounter Plan of Treatment Upcoming Encounters Date Type Department Care Team (Late st Contact Info) Description 04/28/2025 2:30 PM EDT Office Visit [facility] Geriatric[facility] [address] [place] [address] Cristobal Alcantara DO [address] [place] [address] [email or web address] documented as of this encounter Visit Diagnoses Not on filedocumented in this encounter Additional Health Concerns Infection Onset Date Last Indicated Resolved Time CoV-Risk 02/02/2024 02/02/2024 02/13/2024 1:22 AM EST Assessment Noted Time PHQ-9 Depression Total Score: 13 024 2:25 PM EDT PHQ-2 Depression Total Score: 4 11/27/19 24 2:25 PM EDT documented as of this encounter Care Teams Taxonomist Relationship Specialty Start Date End Date Chepe Arpitanamita Alfaro NP [address] [place] [address] PCP - General Family Medicine 11/22/21 Cristobal Alcantara DO [address] [place] [address] [email or web address] Geriatric Medicine 11/18/23 Keena Adams MD [address] [place] [address] Neurology 11/18/23 documented as of this encounter Additional Source Comments The information contained in this document represents components of the legal health record. It is not the complete legal health record.[facility]
--- OUTSIDE RECORDS SUMMARY | 2024-11-30 17:25 | XMS_ITS | Encounter Summary ---
Author Organization [facility] Address [address] [place] [address] Phone Care Team Providers Care Ground Operations Supervisor Name Role Phone MoArpita NETWORK CONTRACT MANAGER Primary Care Provider [phone] QuintonCristobal harry DO Unavailable [phone] Keena Adams MD Unavailable [phone] Reason for Referral * MRI/CAT Scan - Closed Specialty Diagnoses / Procedures Referred By Contac t Referred To Contact Radiology Diagnoses Other symptoms and signs involving cognitive functions and awareness Procedures MRI Brain CHG MRI BRAIN Keena Adams MD [address] [address] Phone: tel: fax: Referral ID Status Reason Start Date Expiration Date Visits Re quested Visits Authorized [id number] Closed 02/04/2023 04/07/2023 1 1 Encounter Details Date Type Department Care Team (Latest Contact Info) Description 01/21/2023 Transcribe Orders Virtual Department [address] [place] [address] Keena Adams MD [address] [address] Other symptoms and signs involving cognitive functions and awareness (Primary Dx) Social History Tobacco Use Types [...] Description 04/28/2025 2:30 PM EDT Office Visit [facility] [address] [place] [address] Cristobal Alcantara DO [address] [place] [address] [email or web address] documented as of this encounter Results * MRI BRAIN WITHOUT CONTRAST (02/14/2023 4:53 PM EST) Anatomical Region Laterality Modality Head Magnetic Resonan ce 02/16/2023 5:43 PM EST Impressions 02/17/2023 6:17 AM EST No intracranial cause for the reported symptoms identified. Narrative 02/17/2023 6:17 AM EST MRI BRAIN WITHOUT CONTRAST Referring clinician's provided indication for this examination in [facility]: Outside Radiology Order; OTHER SYMPTOMS AND SIGNS INVOLVING COGNITIVE FUNCTIONS AND AWARENESS TECHNIQUE: MRI BRAIN WITHOUT CONTRAST Multi-sequence, multi-planar MRI of the brain was performed without intravenous contrast. COMPARISON: None FINDINGS: Brain Parenchyma: Normal. No evidence of acute infarct, mass lesion, or hemorrhage. Ventricular System and Extra-Axial Spaces: Normal. No evidence of midline shift or hydrocephalus. Extracranial Structures: Arterial flow voids in the skull base are present. Bilateral lens replacements. Procedure Note Delfin Torres MD - 02/17/2023 MRI BRAIN WITHOUT CONTRAST Referring clinician's provided indication for this examination in [facility]:Outside Radiology Order; OTHER SYMPTOMS AND SIGNS INVOLVING COGNITIVEFUNCTIONS AND AWARENESS TECHNIQUE: MRI BRAIN WITHOUT CONTRAST Multi-sequence, multi-planar MRI of the brain was performed withoutintravenous contrast. COMPARISON: None FINDINGS: Brain Parenchyma: Normal. No evidence of acute infarct, mass lesion, orhemorrhage. Ventricular System and Extra-Axial Spaces: Normal. No evidence of midlineshift or hydrocephalus. Extracranial Structures: Arterial flow voids in the skull base arepresent. Bilateral lens replacements. IMPRESSION: No intracranial cause for the reported symptoms identified. Keena Adams MD IMG MR HEAD/NECK Final Result documented in this encounter Visit Diagnoses Diagnosis Other symptoms and signs involving cognitive functions and awareness- Primary Other symptoms and signs involving cognitive functions and awareness documented in this encounter Additional Health Concerns Infection Onset Date Last Indicated Resolved Time CoV-Risk 02/02/2024 02/02/2024 02/13/2024 1:22 AM EST documented as of this encounter Care Teams Ground Operations Supervisor Relationship Specialty Start Date End Date Arpita Mo NP [address] [place] [id number] PCP - General Family Medicine 11/22/21 Cristobal Alcantara DO [address] [place] [id number] [email or web address] Geriatric Medicine 11/18/23 Keena Adams MD [address] [place] [id number] Neurology 11/18/23 documented as of this encounter Additional Source Comments The information contained in this document represents components of the legal health record. It is not the complete legal health record.[facility]
--- OUTSIDE RECORDS SUMMARY | 2024-11-30 17:25 | XMS_ITS | Encounter Summary ---
Author Organization [facility] Address [address] [place] [address] Phone Care Team Providers Care Software Performance Engineer Name Role Phone Tapan oLvelace MD Primary Care Provider [phone] Arpita Mo NP Primary Care Provider [phone] Cristobal Alcantara DO Unavailable [phone] Keena Adams MD Unavailable [phone] Encounter Details Date Type Department Care Team (Latest Contact Info) Description 11/27/2018 Transcribe Orders [facility] [address] [place] [address] Marleny Reynoso PA-C [address] [place] [address] [email or web address] Constipation, unspecified constipation type (Primary Dx) Social History Tobacco Use Types [...] Description 04/28/2025 2:30 PM EDT Office Visit [facility] [address] [place] [address] Cristobal Alcantara, DO [address] [place] [address] [email or web address] documented as of this encounter Results * TSH (11/27/2018 1:38 PM EDT) TSH 0.90 0.27 - 4.20 uIU/mL [facility] Blood 11/27/2018 1:38 PM EDT 11/27/2018 1:41 PM EDT us Marleny Reynoso PA-C LAB BLOOD ORDERABLES Final Resu lt Performing Organization Address City/[facility]/ZIP Co de Phone Number [address] [address] * (ABNORMAL) C-Reactive Protein (11/27/2018 1:38 PM EDT) C REACTIVE PROTEIN 16.2(H) 0.0 - 4.0 mg/L [facility] Blood 11/27/2018 1:38 PM EDT 11/27/2018 1:41 PM EDT us Marleny Reynoso PA-C LAB BLOOD ORDERABLES Final Resu lt Performing Organization Address City/[facility]/ZIP Co de Phone Number [address] [address] documented in this encounter Visit Diagnoses Diagnosis Constipation, unspecified constipation type- Primary documented in this encounter Additional Health Concerns Infection Onset Date Last Indicated Resolved Time CoV-Risk 02/02/2024 02/02/2024 02/13/2024 1:22 AM EST documented as of this encounter Care Teams Software Performance Engineer Relationship Specialty Start Date End Date Tapan Lovelace MD [address] [facility] [address] [place] [phone] [email or web address] PCP - General 02/20/17 11/21/21 Arpita Mo NP [address] [place] [id number] PCP - General Family Medicine 11/22/21 Cristobal Alcantara DO [address] [place] [id number] Geriatric Medicine 11/18/23 Keena Adams MD [address] [place] [id number] Neurology 11/18/23 documented as of this encounter Additional Source Comments The information contained in this document represents components of the legal health record. It is not the complete legal health record.[facility]
== END 2024-11-30 15:08 | disposition home or self-care (01) ==
LOC: HO.HSMS 14:32
PROVIDERS: PCP Family Medicine; Visit Provider Psychiatry & Neurology Neurology
DX: G31.84 Mild cognitive impairment of uncertain or unknown etiology (principal); M54.2 Cervicalgia; G47.00 Insomnia, unspecified
CPT/HCPCS: 99214

== ENCOUNTER → 2024-11-30 14:31 | Outpatient (BNVA) | payer OTHER, SELFPAY | PROVIDERS: PCP Family Medicine; Visit Provider Psychiatry & Neurology Neurology | DX: M54.2 Cervicalgia (principal); G31.84 Mild cognitive impairment of uncertain or unknown etiology; G47.00 Insomnia, unspecified | CPT/HCPCS: 99212 ==

== ENCOUNTER → 2024-12-28 23:59 | Outpatient (BNV) | payer OTHER, SELFPAY | PROVIDERS: PCP Family Medicine; Visit Provider Psychiatry & Neurology Neurology | DX: G31.84 Mild cognitive impairment of uncertain or unknown etiology (principal); R29.6 Repeated falls; M54.2 Cervicalgia | CPT/HCPCS: G0179 ==